=== PATIENT | female | born 1975 | race Caucasian/White ===

== ENCOUNTER 2016-10-26 22:58 | Emergency (ER) | payer MEDICAID ==
[~2016-10-26] VITALS: Ht 162.6 cm; Wt 59.9 kg
[2016-10-26 23:07] VITALS: BP 129/91
[2016-10-26] MEDS ORDERED: BUPIVACAINE 0.5 % PF 150 MG/30 ML VIAL TP ONE (23:30)
== END 2016-10-27 00:55 | disposition home or self-care (01) ==
LOC: ER 23:00
DX: L03.012 Cellulitis of left finger (principal); Z88.2 Allergy status to sulfonamides
CPT/HCPCS: 10060; 99284; A4606; A6402; Z7610